=== PATIENT | female | born 1960 | race Caucasian/White ===

== ENCOUNTER 2021-08-03 08:01 | Day surgery (SDC) | payer BC ==
[2021-08-02 12:05] VITALS: BMI 43.9
[2021-08-03] MEDS ORDERED: SODIUM CHLORIDE 0.9% 500 ML 500 ML IV ONE (08:27)
[2021-08-03 08:37] VITALS: TEMP 99.4
[2021-08-03] MEDS ORDERED: fentaNYL (PF) 50 MCG/ML 2 ML AMP ONE (09:01)
[2021-08-03] MEDS: BENZOCAINE SPRAY 1 CAN TOPICAL ONE ×2 (09:14→09:20)
[2021-08-03] MEDS ORDERED: MIDAZOLAM 2 MG/2 ML VIAL IVP ONE (09:20)
[2021-08-03] MEDS ORDERED: fentaNYL (PF) 50 MCG/ML 2 ML AMP IVP ONE (09:20)
[2021-08-03] MEDS: MIDAZOLAM 2 MG/2 ML VIAL IVP ONE ×2 (09:22→09:24)
--- NOTE | 2021-08-03 09:31 | P.PCN ---
Date of Procedure: 08/03/21 Operative Findings: TRANSESOPHAGEAL ECHOCARDIOGRAM TOUR MANAGER: FABI LOPEZ MD, RPVI INDICATION: Rule out atrial septal defect which was identified on Mitch selective echocardiogram SEDATION: Conscious sedation COMPLICATION: None LEVEL OF SEDATION Moderate with sedation length of 12 minutes PROCEDURE DESCRIPTION: After obtaining an informed consent, the patient was brought to transesophageal echocardiogram room. Pulse oximetry and heart monitors were attached to the patient. The patient throat was sprayed using lidocaine. The patient was turned into left lateral position. After that a bite guard was placed. After an appropriate conscious sedation was initiated, the transesophageal echocardiogram was advanced through a bite guard into the mid esophagus. A 2-D echocardiogram images, color Doppler images, continuous wave images, pulse-wave images, of various cardiac structure were performed. After that the transesophageal echocardiogram probe was advanced into the stomach and fixed to obtain transgastric view was. The probe was brought into the mid esophagus. Inter-atrial septum was interrogated using 2D images, color Doppler images, and then contrast study. After that transesophageal echocardiogram was withdrawn out and upon withdrawing the descending thoracic aorta all the way up to the arch was evaluated. FINDING: The right ventricular dimension and systolic function appeared to be within normal limits. The ejection fraction appears to be in the range of 55-60%. Right ventricle is of normal size and function. The left atrium and right atrium are mildly dilated. The interatrial septum appeared to be intact without any evidence of shunt. The aortic valve is trileaflet follow-up without stenosis with mild insufficiency. The mitral valve seems to be normal with mild MR only. Normal tricuspid valve and pulmonic valve. No evidence of pericardial effusion identified. CONCLUSION: 1. Intact interatrial septum without any evidence of PFO or ASD 2. Normal biventricular function and I mentioned 3. Trileaflet aortic valve without stenosis with mild insufficiency 4. Normal mitral valve leaflets with mild MR 5. Normal tricuspid valve and pulmonic valve 6. No evidence of pericardial effusion
[2021-08-03 09:44] VITALS: PULSE 72; RESP 16
[2021-08-03 10:28] VITALS: BP 129/86
== END 2021-08-03 10:35 | disposition home or self-care (01) ==
LOC: CATHCVL 08:01
PROVIDERS: ATTEND Internal Medicine Interventional Cardiology
DX: I08.0 Rheumatic disorders of both mitral and aortic valves (principal); F17.200 Nicotine dependence, unspecified, uncomplicated; I49.9 Cardiac arrhythmia, unspecified; E66.3 Overweight; Z20.822 Contact with and (suspected) exposure to COVID-19; Z68.42 Body mass index [BMI] 45.0-49.9, adult; Z79.899 Other long term (current) drug therapy; Z79.51 Long term (current) use of inhaled steroids; Z88.1 Allergy status to other antibiotic agents; Z88.8 Allergy status to other drugs, medicaments and biological substances
CPT/HCPCS: 93312; 93320; 93325; 87635; J2250; J3010